=== PATIENT | male | born 1970 | race Caucasian/White ===

== ENCOUNTER 2019-09-28 15:42 | Emergency (ER) | payer SELFPAY ==
[2019-09-28 15:52] VITALS: BP 132/83
--- NOTE | 2019-09-28 17:51 | ER Document Report ---
HPI - HPI Time Seen by Provider: 09/28/19 17:44 Pain Level: 4 Context: Patient is a 49-year-old male who presents emergency department with a chief complaint of right shoulder pain. Patient reports his pain is been present for 2 months. He states that he is from [place] and has been seen multiple times by his primary care physician as well as an orthopedist. He states that the orthopedist was worthless and did not order an MRI. He states that his primary care physician did prescribe him gabapentin, hydrocodone, and Flexeril for his right shoulder pain but that he is out of his hydrocodone. Patient requesting refill for this. Patient states he has been using his sling. Denies recent injury. Past Medical History - General Information source: Patient - Social History Smoking Status: Never Smoker Chew tobacco use (# tins/day): No Frequency of alcohol use: None Drug Abuse: None Lives with: Family Family History: None Patient has homicidal ideation: No - Past Medical History Cardiac Medical History: Reports: None Pulmonary Medical History: Reports: None EENT Medical History: Reports: None Neurological Medical History: Reports: None Endocrine Medical History: Reports: None Renal/ Medical History: Reports: None Malignancy Medical History: Reports None GI Medical History: Reports: None Musculoskeletal Medical History: Reports None Skin Medical History: Reports None Psychiatric Medical History: Reports: None Traumatic Medical History: Reports: None Infectious Medical History: Reports: None Surgical Hx: Negative Vertical Provider Document - CONSTITUTIONAL Agree With Documented VS: Yes Exam Limitations: No Limitations General Appearance: No Apparent Distress - HEENT HEENT: Atraumatic, Normal ENT Exam, Normocephalic, PERRLA - NECK Neck: Normal Inspection - RESPIRATORY Respiratory: Breath Sounds Normal, No Respiratory Distress - CARDIOVASCULAR Cardiovascular: Regular Rate, Regular Rhythm - GI/ABDOMEN Gastrointestinal: Abdomen Soft, Abdomen Non-Tender, Normal Bowel Sounds - MUSCULOSKELETAL/EXTREMETIES Musculoskeletal/Extremeties: No Edema Notes: Right arm in sling, tenderness to anterior right shoulder, no deformity, no edema, no erythema. + 2 radial and brachial pulse, strong bilateral vacuum spindle sander. Pt. able to raise right arm to the level of the shoulder but reports pain with AROM/PROM - NEURO Level of Consciousness: Awake, Alert, Appropriate - DERM Integumentary: Warm, Dry, No Rash Course - Re-evaluation Re-evalutation: 09/28/19 I informed the patient I would not refill his narcotic medication that his PCP prescribed him and that MRI's are not ordered for chronic pain without emergent symptoms. Pt. became upset that I would not refill his medication and left triage area. - Vital Signs Vital signs: Temp Pulse Resp BP Pulse Ox 98.3 F 88 18 132/83 H 92 09/28/19 15:50 09/28/19 15:50 09/28/19 15:50 09/28/19 15:50 09/28/19 15:50 Discharge - Discharge Clinical Impression: Right shoulder pain Qualifiers: Chronicity: acute Qualified Code(s): M25.511 - Pain in right shoulder Condition: Stable Disposition: HOME, SELF-CARE Additional Instructions: *Today are seen in the emergency department for right shoulder pain. In the emergency department we do not routinely order MRIs once deemed appropriate by an emergent issue. Your pain is chronic in nature. We do not refill narcotic prescriptions here in the emergency department. Please follow-up with your primary care physician in [place] in regards to a refill. Shoulder Injury You have injured your shoulder. This usually results from stretching or tearing of the tendons during trauma. Time and protection are required in order to heal properly. Many injuries are quite disabling, and should be taken seriously. Initial treatment includes cold packs and a sling to rest the shoulder. The physician has assessed the seriousness of your injury, and has outlined a treatment plan. Understand that this treatment may change, depending on how you progress. If a re-examination was recommended, it is important that you follow up as instructed. Some shoulder injuries (such as partial tear of the rotator cuff) are only suspected after you've failed to improve. Call us if there's severe pain, numbness, or loss of function.
== END 2019-09-28 17:45 | disposition home or self-care (01) ==
LOC: ER 15:42
DX: M25.511 Pain in right shoulder (principal)
CPT/HCPCS: 99281

== ENCOUNTER 2019-09-29 13:11 | Emergency (ER) | payer SELFPAY ==
--- NOTE | 2019-09-29 13:42 | ER Document Report ---
HPI - HPI Notes: 49-year-old male presents emergency room for complaints of right shoulder pain x2 months. Patient had been seen by his primary care provider who prescribed him Flexeril, gabapentin and [place] and gave him a intra-articular steriod injection. Patient states that he needs an MRI of his shoulder but is not able to go back to his primary care who was in [place]. Patient would like me to refill his gabapentin because he states he was only prescribed 100 mg of gabapentin instead 300 mg. Not call his PCP for a request for refill or increase in his medication. Patient states he is not any imaging of his shoulder. Denies any recent trauma. States he has pain at his glenohumeral joint. Denies fevers, chills, chest pain,palpitations, shortness of breath, dyspnea, nausea, vomiting, diarrhea, abdominal pain, hematuria,blurred vision, double vision, loss of vision, speech changes, LH, dizziness, syncope, headaches, wheezing, ST, URI, neck pain, weakness, bowel or bladder dysfunction, saddle anesthesia, numbness or tingling in bilateral upper or lower extremities equally, muscle paralysis, weakness in bilateral upper or lower extremities equally or rash. Past Medical History - General Information source: Patient - Social History Smoking Status: Unknown if Ever Smoked Family History: None Vertical Provider Document - CONSTITUTIONAL Agree With Documented VS: Yes Exam Limitations: No Limitations General Appearance: WD/WN Notes: MEDICATIONS: I agree with the patient medications as charted by the RN. ALLERGIES: I agree with the allergies as charted by the RN. PAST MEDICAL HISTORY/PAST SURGICAL HISTORY: Reviewed and agree as charted by RN. SOCIAL HISTORY: Reviewed and agree as charted by RN. FAMILY HISTORY: No significant familial comorbid conditions directly related to patient complaint EXAM: Reviewed vital signs as charted by RN. PHYSICAL EXAMINATION:reviewed vital signs by RN GENERAL: Well-appearing, well-nourished and in no acute distress. HEAD: Atraumatic, normocephalic. EYES: Pupils equal round and reactive to light, extraocular movements intact, sclera anicteric, conjunctiva are normal. ENT: Nares patent, oropharynx clear without exudates. Moist mucous membranes. NECK: Normal range of motion, supple without lymphadenopathy LUNGS: Breath sounds clear to auscultation bilaterally and equal. No wheezes rales or rhonchi. HEART: Regular rate and rhythm without murmurs ABDOMEN: Soft, nontender, nondistended abdomen. No guarding, no rebound. No masses appreciated. Musculoskeletal: Normal range of motion, no pitting or edema. No cyanosis. right shoulder pain with abduction and flexion. no pain with supination, pronation, extension. Cleaner Window + 2 BUE equally. APROM in shoulder. DTR +2 in BUE equally. Noted crepitus with APROM in shoulder. negative drop arm, neer sign, aguirre test bilaterally. slightly positive impingement sign all on right. No vascular compromise. Neck with full APROM, no cervical spinal tenderness. No tenderness over clavicles or step off noted bilaterally. Strength 5 out of 5 in bilateral upper extremities equally. NEUROLOGICAL: Cranial nerves grossly intact. Normal speech, normal gait. Normal sensory, motor exams PSYCH: Normal mood, normal affect. SKIN: Warm, Dry, normal turgor, no rashes or lesions noted. Course - Re-evaluation Re-evalutation: 09/29/19 17:12 Afebrile vitals stable no distress. Nurses notes reviewed. Patient given 60 mg of Toradol IM for his pain, no focal neurological deficits on examination. X- ray of right shoulder normal per radiology. Discussed with patient he does need to follow-up with vocational rehabilitation specialist and primary care provider for further evaluation. Patient did request a referral to pain management and requested specifically [facility] pain [facility]. Discussed with patient to wear sling, take out a few times a day for range of motion to prevent contracture. clinical examination essentially normal besides tenderness to the glenohumeral joint and pain with abduction 8, patient was agreeable to this plan of care following up with vocational rehabilitation specialist,. Imaging and also referral for pain management. Discussed the patient that he does need to contact his PCP if he does want an increase in his gabapentin. After performing a Medical Screening Examination, I estimate there is LOW risk for OPEN FRACTURE, COMPARTMENT SYNDROME, DEEP VENOUS THROMBOSIS, ACUTE TENDON RUPTURE, or NEUROVASCULAR INJURY thus I consider the discharge disposition reasonable. I have reevaluated this patient multiple times and no significant life threatening changes are noted. The patient and I have discussed the diagnosis and risks, and we agree with discharging home to closely follow-up with their primary doctor or the referral orthopedist with the understanding that symptoms and presentations can change. We also discussed returning to the Emergency Department immediately if new or worsening symptoms occur. We have discussed the symptoms which are most concerning (e.g., changing or worsening pain, numbness, weakness) that necessitate immediate return - Vital Signs Vital signs: Temp Pulse Resp BP Pulse Ox 98.7 F 91 20 122/79 96 09/29/19 13:18 09/29/19 13:18 09/29/19 13:18 09/29/19 13:18 09/29/19 13:18 Discharge - Discharge Clinical Impression: Right shoulder pain Qualifiers: Chronicity: unspecified Qualified Code(s): M25.511 - Pain in right shoulder Condition: Stable Disposition: HOME, SELF-CARE Instructions: Exercise Program for the Shoulder ([facility]), Shoulder Injury ([facility]) Additional Instructions: X-ray of your right shoulder was normal. Please continue to wear your sling. Please follow-up with vocational rehabilitation specialist, primary care provider. You requested pain management, I did give you the name of two pain management provider to follow-up with. Alternate between Tylenol and ibuprofen for pain control. Apply heat 20 minutes on 20 minutes off several times a day. Please follow-up with your primary care provider, vocational rehabilitation specialist within the next 24 to 48 hours. Return immediately for any new or worsening symptoms. Follow up with primary care provider, call tomorrow to make followup appointment. Prescriptions: Meloxicam [Mobic] 7.5 mg PO DAILY #7 tablet Referrals: SHAWN MANZANARES MD [ACTIVE STAFF] - Follow up as needed ANISA LIU NP-C [NURSE PRACTITIONER] - Follow up as needed PHU GARDNER MD [ACTIVE STAFF] - Follow up as needed MARY MCFADDEN DO [NO LOCAL MD] - Follow up as needed
--- NOTE | 2019-09-29 14:34 | RADIOLOGY REPORT (SQ) ---
EXAM DESCRIPTION: SHOULDER RIGHT 2 OR MORE VIEWS IMAGES COMPLETED DATE/TIME: 09/29/2019 2:22 pm REASON FOR STUDY: right shoulder pain x 1m COMPARISON: None. NUMBER OF VIEWS: Three views. TECHNIQUE: Internal rotation, external rotation, and Y view images acquired of the right shoulder. LIMITATIONS: None. FINDINGS: MINERALIZATION: Normal. BONES: No acute fracture. No worrisome bone lesions. JOINTS: No dislocation. VISUALIZED LUNGS AND RIBS: No pneumothorax. No rib fracture. SOFT TISSUES: No radiopaque foreign body. OTHER: No other significant finding. IMPRESSION: NEGATIVE STUDY OF THE RIGHT SHOULDER. NO RADIOGRAPHIC EVIDENCE OF ACUTE INJURY. TECHNICAL DOCUMENTATION: JOB ID: [id number] [employer]- All Rights Reserved Reading location - IP/workstation name: [email or web address]
[2019-09-29] MEDS ORDERED: KETOROLAC TROMETHAMINE 60 MG/2 ML SDV IM ONE (14:40)
[2019-09-29 15:22] VITALS: BP 114/77
== END 2019-09-29 15:28 | disposition home or self-care (01) ==
LOC: ER 13:11
DX: M25.511 Pain in right shoulder (principal); Z79.899 Other long term (current) drug therapy; Z79.01 Long term (current) use of anticoagulants; Z79.891 Long term (current) use of opiate analgesic
CPT/HCPCS: 99283; 96372; 73030; J1885